=== PATIENT | male | born 1960 | race American Indian/Alaskan Native ===

== ENCOUNTER 2021-04-17 11:36 | Day surgery (SDC) | payer OTHER ==
[~2021-04-17 11:36] MED LIST: ACETAMINOPHEN 500 MG TAB PO SCH; LACTATED RINGERS 1,000 ML IV SCH; MIDAZOLAM 2 MG/2 ML INJ IV NR
--- NOTE | 2021-04-17 13:18 | Anesthesia Day of Surgery ---
Anesthesia Day of Surgery - Day of Surgery Patient Examined: Yes Patient H&P Reviewed: Yes Patient is NPO: Yes
--- NOTE | 2021-04-17 13:18 | Anesthesia Consultation ---
Anesthesia Consult and Med Hx Date of service: 04/17/21 - Airway Anesthetic Teeth Evaluation: Good ROM Head & Neck: Adequate Mental/Hyoid Distance: Adequate Mallampati Class: Class II Intubation Access Assessment: Probably Good - Pre-Operative Health Status ASA Pre-Surgery Classification: ASA2 Proposed Anesthetic Plan: General - Pulmonary Hx Smoking: Yes (former smoker quit >30yrs ago) Hx Respiratory Symptoms: No Hx Sleep Apnea: No (IONA PRE SCREEN HIGH RISK) - Cardiovascular System Hx Hypertension: Yes (took antihypertensives this morning) - Central Nervous System CVA: No Hx Back Pain: Yes - Endocrine Hx Renal Disease: No Hx Liver Disease: No Hx Insulin Dependent Diabetes: Yes Hx Thyroid Disease: No - Other Systems Hx Obesity: Yes (BMI 32) - Additional Comments Anesthesia Medical History Comments: No hx anesthetic complications.
[2021-04-17] MEDS ORDERED: oxyCODONE /ACETAMINOPHEN 5-325MG TAB PO PRN ×2 (14:00→17:22)
[2021-04-17] MEDS ORDERED: ceFAZolin/Water 2 GM/20 ML 2 GM/20 ML SYRINGE IV ONE (14:26)
[2021-04-17] MEDS ORDERED: BUPIVACAINE/PF (0.25%) 2.5 MG/ML 30 ML VIAL INFILTRATI ONE (14:27)
[2021-04-17] MEDS ORDERED: LIDOCAINE (1%) 10 MG/1 ML VIAL 20 ML MDV ONE (14:27)
--- NOTE | 2021-04-17 14:46 | Post Operative Note ---
Date of procedure: 04/17/21 Pre-op diagnosis: bilat huge hydrocles Post-op diagnosis: same Findings: as above Procedure: bilat hydrocelecmy Anesthesia: GETA Surgeon: MARISEL LIMON Estimated blood loss: minimal Pathology: list (sac) Specimen disposition: to lab Condition: stable Disposition: PACU
--- NOTE | 2021-04-17 14:48 | Discharge Summary ---
Short Stay Discharge Plan Activity: other (no straining ) Weight Bearing Status: Full Weight Bearing Diet: low fat, low cholesterol, low salt Wound: open to air, change dressing Special Instructions: other (ice in RR and 24 hrs ) Durable Medical Equipment Needed Upon Discharge: other (has drain ) Follow up with: [facility] [Primary Care Provider] - 7 Days MARISEL LIMON MD [Staff Physician] - 04/22/21
[2021-04-17] MEDS ORDERED: propofoL 200 MG/20 ML VIAL IV ONE (14:51)
[2021-04-17] MEDS ORDERED: fentaNYL 100 MCG/2 ML INJ ONE (14:57)
[2021-04-17] MEDS ORDERED: KETOROLAC 30 MG/1 ML INJ ONE (14:57)
[2021-04-17] MEDS ORDERED: ONDANSETRON 4 MG/2 ML INJ ONE ×2 (14:57→17:36)
[2021-04-17] MEDS ORDERED: ceFAZolin/STERILE WATER 2 GM/20 ML SYRINGE IV NR (15:00)
[2021-04-17] MEDS ORDERED: ePHEDrine SULFATE 50 MG/1 ML INJ ONE (15:11)
[2021-04-17] MEDS ORDERED: LACTATED RINGERS 1,000 ML ONE (15:29)
[2021-04-17] MEDS: HYDROmorphone 1 MG/1 ML INJ IV PRN ×3 (16:38→17:04)
[2021-04-17] MEDS ORDERED: HYDROmorphone 1 MG/1 ML INJ ONE (17:04)
[2021-04-17] MEDS ORDERED: oxyCODONE /ACETAMINOPHEN 5-325MG TAB ONE (17:24)
[2021-04-17] MEDS ORDERED: ONDANSETRON 4 MG/2 ML INJ IV PRN (17:35)
[2021-04-17 18:00] VITALS: BP 146/89
--- NOTE | 2021-04-17 18:09 | Operative Report ---
DATE OF SURGERY: 04/17/2021 PREOPERATIVE DIAGNOSES: Huge left hydrocele, moderate right side hydrocele. POSTOPERATIVE DIAGNOSES: Huge left hydrocele, moderate right side hydrocele. PROCEDURES: Cystoscopy, bilateral hydrocelectomy. SURGEON: Jay Evangelista MD ANESTHESIA: General. FINDINGS: This is a gentleman who has a huge hydrocele, the biggest is on the left, presents for repair. All risks and implications discussed including recurrence, bleeding, infection. DESCRIPTION OF PROCEDURE: The patient was brought to the operating room and placed on the operating table. Following induction of anesthesia, placed in supine position, prepped and draped in usual sterile fashion. We started with the larger one on the left side and over approximately 400-460 mL of fluid were obtained. This was clear. The large sac was trimmed. There was a large thickened scrotal fascia. Once we got to the tunica vaginalis, we cleaned this off. We opened it and evacuated out all the fluid. Significant amount of sac was trimmed and this was oversewn and secured to the testis, so it would not recur. At this point, the wound was irrigated. The fascia was approximated with 3-0 and 2-0 chromic, skin with interrupted 2-0 chromics. No significant bleeding just ooze from the fascia, which was cauterized and oversewn. At this point, an incision was made on the right side, carried down through the fascia to the tunica vaginalis. This was also trimmed. There was approximately 210 mL of fluid, which was evacuated out. At this point, the sac was trimmed. The patient tolerated the procedure well. No significant complications. This was oversewn once again and the fascia was approximated with 2-0 and 3-0 chromic, skin with 2-0 chromic. The Tj drains were placed on each side and secured with silk. He was brought to recovery in stable condition. Minimal blood loss. TID: [id number] RECEIPT: [id number] ASIA/GIBRAN
--- NOTE | 2021-04-17 19:01 | Post Anesthesia Evaluation ---
- Post Anesthesia Evaluation Patient Participated: Yes Airway Patent: Yes Stable Respiratory Function: Yes Nausea/Vomiting: No Temp > 96.8F: Yes Pain Manageable: Yes Adequeate Hydration: Yes Anesthesia Complications: No
== END 2021-04-17 17:50 | disposition home or self-care (01) ==
LOC: OR 11:36
PROVIDERS: ATTEND Urology
DX: N43.2 Other hydrocele (principal); I10 Essential (primary) hypertension; E66.9 Obesity, unspecified; E11.9 Type 2 diabetes mellitus without complications; F32.9 Major depressive disorder, single episode, unspecified; Z98.890 Other specified postprocedural states; Z68.32 Body mass index [BMI] 32.0-32.9, adult; Z79.899 Other long term (current) drug therapy; Z79.4 Long term (current) use of insulin; Z87.891 Personal history of nicotine dependence; Z79.82 Long term (current) use of aspirin
CPT/HCPCS: 55041; 82962; 88302; 88311; J0690; J1170; J1885; J2405; J2704; J3010; J3490; J7120

== ENCOUNTER 2021-05-03 12:54 | Emergency (ER) | payer OTHER ==
[2021-05-03 14:43] VITALS: BP 171/90
--- NOTE | 2021-05-03 22:52 | Emergency Department Report ---
- General Chief Complaint: Urogenital-Male Stated Complaint: POST OP COMPLICATION Time Seen by Provider: 05/03/21 19:57 Source: patient Mode of arrival: Ambulatory Limitations: No Limitations - History of Present Illness Initial Comments: 60-year-old male status post testicular procedure on April 16, 2021 where he had a hydrocele drained by urology. The area was sutured and sutures were removed few days ago and now he reports that he has 2 open wounds with drainage were placed on his testicle region was continued ooze off and on with a clear fluid. No testicular pain, no fever, chills, sweats. No hematuria or dysuria. No nausea no vomiting Place: other Patient Tetanus UTD: Yes Context: other Associated Symptoms: none - Related Data Home Medications Medication Instructions Recorded Confirmed Last Taken Alogliptin Benzoate [Alogliptin] 25 mg PO DAILY 04/05/21 04/17/21 04/17/21 08:00 Aspirin [Greene Aspirin EC] 81 mg PO DAILY 04/05/21 04/17/21 04/10/21 09:00 Insulin Glargine [Lantus VIAL] 50 unit SUB-Q QHS 04/05/21 04/05/21 Unknown AtorvaSTATin [Lipitor] 20 mg PO QHS 04/09/21 04/17/21 04/16/21 20:00 Diltiazem HCl [Cardizem Cd] 360 mg PO DAILY 04/09/21 04/17/21 04/16/21 20:00 Hydralazine HCl 50 mg PO TID 04/09/21 04/17/21 04/17/21 07:00 Insulin Aspart [Novolog Flexpen] 5 unit SQ TID 04/09/21 04/09/21 Unknown Loratadine [Allergy Relief] 10 mg PO PRN PRN 04/09/21 04/09/21 Unknown Losartan [Cozaar] 100 mg PO QDAY 04/09/21 04/17/21 04/17/21 08:00 Metformin HCl [metFORMIN] 1,000 mg PO BID 04/09/21 04/17/21 04/16/21 20:00 Propranolol HCl 20 mg PO BID 04/09/21 04/17/21 04/15/21 09:00 Sertraline [Zoloft] 50 mg PO QDAY 03/03/0204/17/21 04/16/21 09:00 Previous Rx's Medication Instructions Recorded Last Taken Type Sulfamethoxazole/Trimethoprim 1 each PO BID #20 05/03/21 Unknown Rx [Bactrim DS TAB] Allergies Allergy/AdvReac Type Severity Reaction Status Date / Time No Known Allergies Allergy Verified 04/05/21 11:53 ED Review of Systems ROS: Stated complaint: POST OP COMPLICATION Other details as noted in HPI Comment: All other systems reviewed and negative ED Past Medical Hx - Past Medical History Hx Hypertension: Yes (took antihypertensives this morning) Hx Diabetes: Yes Hx Liver Disease: No Hx Renal Disease: No - Surgical History Additional Surgical History: HYDROCELECTOMY - Social History Smoking Status: Former Smoker - Medications Home Medications: Home Medications Medication Instructions Recorded Confirmed Last Taken Type Alogliptin Benzoate [Alogliptin] 25 mg PO DAILY 04/05/21 04/17/21 04/17/21 08:00 History Aspirin [Greene Aspirin EC] 81 mg PO DAILY 04/05/21 04/17/21 04/10/21 09:00 History Insulin Glargine [Lantus VIAL] 50 unit SUB-Q QHS 04/05/21 04/05/21 Unknown History AtorvaSTATin [Lipitor] 20 mg PO QHS 04/09/21 04/17/21 04/16/21 20:00 History Diltiazem HCl [Cardizem Cd] 360 mg PO DAILY 04/09/21 04/17/21 04/16/21 20:00 History Hydralazine HCl 50 mg PO TID 04/09/21 04/17/21 04/17/21 07:00 History Insulin Aspart [Novolog Flexpen] 5 unit SQ TID 04/09/21 04/09/21 Unknown History Loratadine [Allergy Relief] 10 mg PO PRN PRN 04/09/21 04/09/21 Unknown History Losartan [Cozaar] 100 mg PO QDAY 04/09/21 04/17/21 04/17/21 08:00 History Metformin HCl [metFORMIN] 1,000 mg PO BID 04/09/21 04/17/21 04/16/21 20:00 History Propranolol HCl 20 mg PO BID 04/09/21 04/17/21 04/15/21 09:00 History Sertraline [Zoloft] 50 mg PO QDAY 04/09/21 04/17/21 04/16/21 09:00 History Sulfamethoxazole/Trimethoprim 1 each PO BID #20 05/03/21 Unknown Rx [Bactrim DS TAB] ED Physical Exam - General Limitations: No Limitations General appearance: alert, in no apparent distress - Head Head exam: Present: atraumatic, normocephalic - Eye Eye exam: Present: normal appearance, PERRL, EOMI Pupils: Present: normal accommodation - ENT ENT exam: Present: normal exam, normal orophraynx, mucous membranes moist, TM's normal bilaterally - Neck Neck exam: Present: normal inspection - Respiratory Respiratory exam: Present: normal lung sounds bilaterally. Absent: respiratory distress - Cardiovascular Cardiovascular Exam: Present: regular rate, normal rhythm. Absent: systolic murmur, diastolic murmur, rubs, gallop - GI/Abdominal GI/Abdominal exam: Present: soft, normal bowel sounds - Rectal Rectal exam: Present: deferred - exam: Present: scrotal swelling - Expanded Exam Expanded image: 1 - Testicular swelling wound to this region sutures removal half dehisced 2 - 1 cm wound dehiscence - Extremities Exam Extremities exam: Present: normal inspection, normal capillary refill - Back Exam Back exam: Present: normal inspection - Neurological Exam Neurological exam: Present: alert, oriented X3 - Psychiatric Psychiatric exam: Present: normal affect, normal mood - Skin Skin exam: Present: warm, dry, intact, normal color. Absent: rash ED Course Vital Signs 05/03/21 14:42 Temperature 98.2 F Pulse Rate 92 H Respiratory 18 Rate Blood Pressure 171/90 [Right] O2 Sat by Pulse 100 Oximetry ED Medical Decision Making - Medical Decision Making 60-year-old male with testicular swelling after a testicular procedure and drain removed. Sutures were removed a few days ago and there was wound dehiscence he was advised to come to the emergency department for evaluation. No testicular tenderness no fever, chills, sweats. No hematuria no dysuria no nausea, no vom iting prove the wound was treated with Steri-Strips to both areas of dehiscence he was advised to follow-up with his urologist at which point time they would evaluate the wound to possibly revise and resuture or monitor the healing process which may be being slowed by his diabetic history. Critical care attestation.: If time is entered above; I have spent that time in minutes in the direct care of this critically ill patient, excluding procedure time. ED Disposition Clinical Impression: Open wound of testis Disposition: HOME / SELF CARE / HOMELESS Is pt being admited?: No Does the pt Need Aspirin: No Condition: Stable Instructions: Sutures, Sutter, or Adhesive Wound Closure, [id number] Prescriptions: Sulfamethoxazole/Trimethoprim [Bactrim DS TAB] 1 each PO BID #20 Referrals: [facility] [Primary Care Provider] - 3-5 Days
== END 2021-05-03 23:38 | disposition home or self-care (01) ==
LOC: ED 12:54
DX: S31.30XA Unspecified open wound of scrotum and testes, initial encounter (principal); I10 Essential (primary) hypertension; E11.9 Type 2 diabetes mellitus without complications; Z87.891 Personal history of nicotine dependence; X58.XXXA Exposure to other specified factors, initial encounter; Y93.89 Activity, other specified; Y92.89 Other specified places as the place of occurrence of the external cause; Y99.8 Other external cause status
CPT/HCPCS: 99282